=== PATIENT | male | born 1995 | race Caucasian/White ===

== ENCOUNTER 2019-07-24 22:27 | Emergency (ER) | payer OTHER ==
[2019-07-24] MEDS ORDERED: Cyclobenzaprine 10 MG Tab PO ONE (22:28)
[2019-07-24] MEDS ORDERED: Acetaminophen/oxyCODONE 325-5 MG Tab PO ONE (22:28)
[2019-07-24] MEDS ORDERED: HYDROmorphone 1 MG/ML Syringe IVPUSH ONE ×2 (22:31→23:01)
--- NOTE | 2019-07-24 22:46 | EDM.PDOC ---
"ED HPI GENERAL MEDICAL PROBLEM - General Chief Complaint: Upper Extremity Injury/Pain Stated Complaint: HORSE ACCIDENT Time Seen by Provider: 07/24/19 22:50 Source of Information: Reports: Patient History Limitations: Reports: No Limitations - History of Present Illness INITIAL COMMENTS - FREE TEXT/NARRATIVE: ED ambulatory with c/o severe pain to left arm. Bucked off horse [employer], thinks landed on elbow. Pain below shoulder to forearm. Limited ROM, No gross deformity. Did not hit head no loss of consciousness. ETOH 3 beers tonight last one hour ago. Last meal 530. Denies other injury, no breathing diffiuty no rib or abdominal pain. Reports riding 3 miles home and horse spooked. - Related Data Allergies Allergy/AdvReac Type Severity Reaction Status Date / Time amoxicillin Allergy Hives Verified 07/24/19 22:54 sulfamethoxazole Allergy Hives Verified 07/24/19 22:54 [From Bactrim] trimethoprim [From Bactrim] Allergy Hives Verified 07/24/19 22:54 Review of Systems - Review of Systems Review Of Systems: ROS reveals no pertinent complaints other than HPI. ED EXAM, GENERAL - Physical Exam Exam: See Below Exam Limited By: No Limitations General Appearance: Alert, Moderate Distress Eye Exam: Bilateral Eye: EOMI Ears: Normal External Exam, Hearing Grossly Normal Nose: Normal Inspection Throat/Mouth: Normal Inspection Head: Atraumatic, Normocephalic Neck: Normal Inspection, Full Range of Motion Respiratory/Chest: No Respiratory Distress, Lungs Clear, Normal Breath Sounds Cardiovascular: Normal Peripheral Pulses, Regular Rate, Rhythm GI/Abdominal: Normal Bowel Sounds Back Exam: Normal Inspection Extremities: Limited Range of Motion, Other (skin intact, mild deformity mid humerus, good cap refill, sensation in tact, movingfingers wrist, ) Neurological: Alert, Oriented, Normal Cognition Psychiatric: Normal Affect Skin Exam: Dry, Intact, Other (hands cool bilaterally) ED TRAUMA EXTREMITY PROCEDURES - Splinting Left Upper Extremity Splint Site: humerus Pre-Procedure NV Status: Normal Post-Procedure NV Status: Normal Splint Material: Fiberglass Splint Design: Gutter (long arm) Applied & Form Fitted By: Provider Provider Post-Splint Application NV Check: NV Status Normal, Other (improved alignment post procedure) Complications: No Course - Vital Signs Last Recorded V/S: Last Vital Signs Temp 98.7 F 07/24/19 22:49 Pulse 80 07/24/19 22:49 Resp 18 07/24/19 22:49 BP 101/55 L 07/24/19 22:49 Pulse Ox 96 07/24/19 22:49 - Orders/Labs/Meds Orders: Active Orders 24 hr Category Date Time Status Humerus Lt [CR] Urgent Exams 07/25/19 01:36 Taken Sodium Chloride 0.9% [Normal Saline] 1,000 ml Med 07/25/19 03:00 Active IV .BOLUS Medication Orders Sodium Chloride (Normal Saline) 1,000 mls @ 999 mls/hr IV .BOLUS ONE Stop: 07/25/19 04:00 Last Admin: 07/25/19 03:02 Dose: 999 mls/hr Labs: Laboratory Tests 07/24/19 07/24/19 Range/Units 23:10 23:10 WBC 11.3 H (5.0-10.0) 10^3/uL RBC 4.95 (4.6-6.2) 10^6/uL Hgb 14.8 (14.0-18.0) g/dL Hct 41.7 (40.0-54.0) % MCV 84.2 (80-100) fL MCH 29.9 (27.0-34.0) pg MCHC 35.5 H (33.0-35.0) g/dL Plt Count 198 (150-450) 10^3/uL Neut % (Auto) 55.6 (42.2-75.2) % Lymph % (Auto) 28.5 (20.5-50.1) % [place] % (Auto) 7.4 (2-8) % Eos % (Auto) 8.2 H (1.0-3.0) % Baso % (Auto) 0.3 (0.0-1.0) % Sodium 139 (135-145) mmol/L Potassium 3.5 L (3.6-5.0) mmol/L Chloride 103 (101-111) mmol/L Carbon Dioxide 24.0 (21.0-31.0) mmol/L Anion Gap 15.5 BUN 19 H (7-18) mg/dL Creatinine 0.7 (0.6-1.3) mg/dL Est Cr Clr Drug Dosing 159.92 mL/min Estimated GFR (MDRD) > 60 BUN/Creatinine Ratio 27.14 Glucose 87 (74-105) mg/dL Calcium 8.8 (8.4-10.2) mg/dl Total Bilirubin 0.7 (0.2-1.0) mg/dL AST 24 (10-42) IU/L ALT 22 (10-60) IU/L Alkaline Phosphatase 48 (42-121) IU/L Total Protein 6.8 (6.7-8.2) g/dl Albumin 4.2 (3.2-5.5) g/dl Globulin 2.6 Albumin/Globulin Ratio 1.62 Ethyl Alcohol 71 mg/dL Meds: Medications Generic Name Dose Route Start Last Admin Trade Name Freq PRN Reason Stop Dose Admin Sodium Chloride 1,000 mls @ 999 mls/hr 07/25/19 03:00 07/25/19 03:02 Normal Saline IV 07/25/19 04:00 999 mls/hr .BOLUS ONE Administration Discontinued Medications Generic Name Dose Route Start Last Admin Trade Name Freq PRN Reason Stop Dose Admin Cyclobenzaprine HCl Confirm 07/25/19 02:33 07/25/19 02:41 Flexeril Administered 07/25/19 02:34 Not Given Dose 10 mg .ROUTE .STK-MED ONE Hydromorphone HCl 1 mg 07/24/19 22:31 07/24/19 22:40 Dilaudid IVPUSH 07/24/19 22:32 1 mg ONETIME ONE Administration Hydromorphone HCl 1 mg 07/24/19 23:01 07/25/19 00:10 Dilaudid IVPUSH 07/24/19 23:02 1 mg ONETIME ONE Administration Hydromorphone HCl Confirm 07/25/19 02:02 Dilaudid Administered 07/25/19 02:03 Dose 1 mg .ROUTE .STK-MED ONE Hydromorphone HCl 0.5 mg 07/25/19 02:05 07/25/19 02:07 Dilaudid IVPUSH 07/25/19 02:06 0.5 mg ONETIME ONE Administration Midazolam HCl 2 mg 07/25/19 01:09 07/25/19 01:27 Versed 1 Mg/Ml IVPUSH 07/25/19 01:10 2 mg ONETIME ONE Administration Ondansetron HCl 4 mg 07/24/19 23:01 07/25/19 00:06 Zofran IV 07/24/19 23:02 4 mg ONETIME ONE Administration Oxycodone/Acetaminophen Confirm 07/25/19 02:32 07/25/19 02:41 Percocet 325-5 Mg Administered 07/25/19 02:33 Not Given [facility] Interpretation Free Text/Narrative:: [facility] Final Radiology Report Call: [phone] assistance Online chat: [email or web address] Name: CHANCE SORTO Age: 24Years M Date: 07/25/2019 SSN: -- : 1995 Study: CT SPINE CERVICAL WO Requesting Physician: LIBBY PANDYA Images: [id number] Addl Studies: Provided Clinical History: Contrast: Without Contrast Medium: Contrast Amount: Contrast Method: Page 1 of 2 EXAM: CT Cervical Spine Without Contrast EXAM DATE/TIME: 07/25/2019 12:20 AM CLINICAL HISTORY: 24 years old, male; Other: Bucked off horse--lateral neck pain TECHNIQUE: Imaging protocol: Computed tomography images of the cervical spine without contrast. Radiation optimization: All CT scans at this facility use at least one of these dose optimization techniques: automated exposure control; mA and/or kV adjustment per patient size (includes targeted exams where dose is matched to clinical indication); or iterative reconstruction. COMPARISON: No relevant prior studies available. FINDINGS: Vertebrae: No acute fracture. Normal alignment. Vertebral body heights preserved. Discs/Spinal canal/Neural foramina: Typical for age. Soft tissues: Unremarkable. Lungs: Lung apices are unremarkable as visualized. IMPRESSION: No acute findings. Thank you for allowing us to participate in the care of your patient. [facility] Final Radiology Report Call: [phone] assistance Online chat: [email or web address] Name: CHANCE SORTO Age: 24Years M Date: 07/25/2019 SSN: -- : [id number] Study: CT SPINE THORACIC WO Requesting Physician: LIBBY PANDYA Images: [id number] Addl Studies: Provided Clinical History: Contrast: Without Contrast Medium: Contrast Amount: Contrast Method: Page 1 of 2 EXAM: CT Thoracic Spine Without Contrast EXAM DATE/TIME: 07/25/2019 12:20 AM CLINICAL HISTORY: 24 years old, male; Other: Bucked off horse/pain TECHNIQUE: Imaging protocol: Computed tomography images of the thoracic spine without contrast. Radiation optimization: All CT scans at this facility use at least one of these dose optimization techniques: automated exposure control; mA and/or kV adjustment per patient size (includes targeted exams where dose is matched to clinical indication); or iterative reconstruction. COMPARISON: No relevant prior studies available. FINDINGS: Vertebrae: No acute fracture. Normal alignment. Discs/Spinal canal/Neural foramina: No unexpected degenerative changes. Soft tissues: Unremarkable. IMPRESSION: Unremarkable CT Spine. Thank you for allowing us to participate in the care of your patient. Dictated and Authenticated by: Iam Santos MD CHANCE SORTO | Final Radiology Report CONFIDENTIALITY STATEMENT This report is intended only for use by the referring physician, and only in accordance with law. If you received this in error, call [phone]. [facility] Final Radiology Report with Addendum Call: [phone] assistance Online chat: [email or web address] Name: CHANCE SORTO Age: 24Years M Date: 07/25/2019 SSN: -- : [id number] Study: CT CHEST WO Requesting Physician: LIBBY PANDYA Images: [id number] Addl Studies: Provided Clinical History: Contrast: Without Contrast Medium: Contrast Amount: Contrast Method: Page 1 of 2 Addendum created by Iam Santos MD on 07/25/2019 1:14 AM Central Time ([place] & [place]) The left scapula is unremarkable. Initial Report created on 07/25/2019 12:58 AM Central Time ([place] & [place]) EXAM: CT Chest Without Contrast EXAM DATE/TIME: 07/25/2019 12:20 AM CLINICAL HISTORY: 24 years old, male; Other: Bucked off horse, left sided pain TECHNIQUE: Imaging protocol: Computed tomography of the chest without contrast. Radiation optimization: All CT scans at this facility use at least one of these dose optimization techniques: automated exposure control; mA and/or kV adjustment per patient size (includes targeted exams where dose is matched to clinical indication); or iterative reconstruction. COMPARISON: No relevant prior studies available. FINDINGS: Lungs: unremarkable. No consolidation. No masses or suspicious nodules. Pleural space: unremarkable. No pneumothorax. No pleural effusion. Heart: unremarkable. No pericardial effusion. Aorta: unremarkable. No significant aortic dilitation. Lymph nodes: Unremarkable. No enlarged lymph nodes. Bones/joints: Displaced, angulated fracture of the left humeral diaphysis. CHANCE SORTO | Final Radiology Report CONFIDENTIALITY STATEMENT This report is intended only for use by the referring physician, and only in accordance with law. If you received this in error, call [phone]. Page 2 of 2 Soft tissues: Unremarkable. IMPRESSION: Fractured left humeral diaphysis. Thank you for allowing us to participate in the care of your patient. Dictated and Authenticated by: Iam Santos MD [facility] Final Radiology Report Call: [phone] assistance Online chat: [email or web address] Name: CHANCE SORTO Age: 24Years M Date: 07/25/2019 SSN: -- : 1995 Study: XR HUMERUS LEFT Requesting Physician: LIBBY PANDYA Images: 1 Addl Studies: Provided Clinical History: Contrast: Contrast Medium: Contrast Amount: Contrast Method: CONFIDENTIALITY STATEMENT This report is intended only for use by the referring physician, and only in accordance with law. If you received this in error, call [phone]. Page 1 of 1 EXAM: XR Left Humerus EXAM DATE/TIME: 07/25/2019 1:36 AM CLINICAL HISTORY: 24 years old, male; Other: Post splint TECHNIQUE: Imaging protocol: XR Left humerus Views: 2 or more views. COMPARISON: CR Humerus Lt 07/24/2019 10:53 PM FINDINGS: Bones/joints: Displaced humeral diaphyseal fracture with improved alignment. Soft tissues: Unremarkable. IMPRESSION: Improved alignment but there is still some displacement. Degree of displacement and angulation cannot be adequately assessed on this single view. Thank you for allowing us to participate in the care of your patient. Dictated and Authenticated by: Iam Santos MD 07/25/2019 1:43 AM Central Time ([place] & [place]) - Re-Assessments/Exams Free Text/Narrative Re-Assessment/Exam: Left arm stabilized, c/o pain to left scapula laterl left neck and lateral upper thoracic. clavicle and shoulder negative. no rib pain no difficulty breathing. Pain mid shaft improved with dilaudid. TC consult ortho [facility]annon, Follow up ortho clinic Saturday, long arm splint with sling. Versed 2mg for reduction and splint placement. Patient tolerated well , Improved alignment per follow up xray. Sensation and circulation remains intact. Mild nausea, no vomiting. 07/25/19 03:46 Up at bedside, no dizzines. mild discomfort, home with . Departure - Departure Time of Disposition: 03:42 Disposition: Home, Self-Care 01 Condition: Fair Clinical Impression: Humerus fracture Qualifiers: Encounter type: initial encounter Humerus Location: shaft Fracture type: closed Fracture morphology: unspecified fracture morphology Laterality: left Qualified Code(s): S42.302A - Unspecified fracture of shaft of humerus, left arm , initial encounter for closed fracture - Discharge Information *PRESCRIPTION DRUG MONITORING PROGRAM REVIEWED*: No *COPY OF PRESCRIPTION DRUG MONITORING REPORT IN PATIENT [place]: No Instructions: Humerus Fracture Treated With Immobilization, [id number], Metacarpal Fracture, [id number] Referrals: Esteban Barbosa MD [Primary Care Provider] - Forms: ED Department Discharge Additional Instructions: Immobilization arm sling ice to arm Ibuprofen 600mg every 6 hours as needed for moderate pain percocet 5/325 one every 4 hours as needed for severe pain #15 flexeril 10mg 1/2 to one every 8 hours as needed for muscle spasm #10 Follow up with ortho clinic on Saturday am, Dr Betancourt, Urgent follow up if decrease sensation numbness or tingling Head injury instructions - My Orders Last 24 Hours: My Active Orders 07/25/19 01:36 Humerus Lt [CR] Urgent 07/25/19 03:00 Sodium Chloride 0.9% [Normal Saline] 1,000 ml IV .BOLUS - Assessment/Plan Last 24 Hours: My Active Orders 07/25/19 01:36 Humerus Lt [CR] Urgent 07/25/19 03:00 Sodium Chloride 0.9% [Normal Saline] 1,000 ml IV .BOLUS"
[2019-07-24] MEDS ORDERED: Ondansetron 4 MG/2 ML SDV IV ONE (23:01)
[2019-07-24 23:37] LABS: ANION GAP 15.5; CHLORIDE,CL 103 mmol/L (101-111); SODIUM,NA 139 mmol/L (135-145)
[2019-07-25] MEDS ORDERED: Midazolam 1 MG/ML 2 ML SDV IVPUSH ONE (01:09)
[2019-07-25] MEDS ORDERED: HYDROmorphone 1 MG/ML Syringe ONE (02:02)
[2019-07-25] MEDS ORDERED: HYDROmorphone 1 MG/ML Syringe IVPUSH ONE (02:05)
[2019-07-25] MEDS ORDERED: Acetaminophen/oxyCODONE 325-5 MG Tab ONE (02:32)
[2019-07-25] MEDS ORDERED: Cyclobenzaprine 10 MG Tab ONE (02:33)
[2019-07-25] MEDS ORDERED: Sodium Chloride 0.9% 1,000 ML IV ONE (03:00)
== END 2019-07-25 03:52 | disposition home or self-care (01) ==
LOC: DL.ED 22:27
DX: S42.302A Unspecified fracture of shaft of humerus, left arm, initial encounter for closed fracture (principal); Z88.1 Allergy status to other antibiotic agents; Z88.2 Allergy status to sulfonamides; V80.010A Animal-rider injured by fall from or being thrown from horse in noncollision accident, initial encounter
CPT/HCPCS: 29105; 36415; 71250; 72125; 72128; 73060; 80053; 80320; 85025; 94762; 96365; 96375; 96376; 99284; A9270; J1170; J2250; J2405; J7030; G0480